=== PATIENT | male | born 1975 | race Caucasian/White ===

== ENCOUNTER → 2020-03-07 | Outpatient (CLI) | payer BC ==
--- NOTE | 2020-03-07 17:26 | CONS ---
CONSULTATION DATE OF SERVICE: 03/07/2020 This patient is a 44-year-old gentleman who has been evaluated in Sleep Center for possible obstructive sleep apnea-hypopnea syndrome. HISTORY OF PRESENT ILLNESS/SLEEP-WAKE EVALUATION: Patient's usual sleep schedule on weekdays is from 9:30 p.m. to 5 a.m. and on weekends from 11 p.m. to 10 a.m. Sometimes he has problems with falling asleep, although no TV in bedroom. He to sleep on the stomach position. He wakes up from sleep several times with one episode of nocturia. He grinds his teeth, has episodes of palpitations, heartburn, sweating. In the beginning of the night he has symptoms of restless legs. In the morning, the patient wakes up tired, has difficulties paying attention, falling asleep during the day, worries about his sleep, has problems with memory, concentration, irritability, depression and anxiety. [place] Sleepiness Scale is significantly increased at 14. He may take one nap around 3 p.m. Usually he does not feel refreshed after a nap. He does not see vivid dreams during naps. No history of hypnagogic hallucinations, sleep paralysis or cataplexy. PAST MEDICAL HISTORY: Past medical history is positive for anxiety, acid reflux, liver problems. PAST SURGICAL HISTORY: Liver biopsy in 2011. MEDICATIONS: 1. Omeprazole 20 mg once a day. 2. Citalopram 20 mg once a day. 3. Ambien 10 mg on p.r.n. basis. SOCIAL HISTORY: Negative for smoking. Alcohol consumption occasional. FAMILY HISTORY: Cancer, arthritis. REVIEW OF SYSTEMS: Multiple awakenings from sleep, significant sleepiness during the day. PHYSICAL EXAMINATION: GENERAL: A pleasant gentleman without distress. VITAL SIGNS: BP 123/73, HR 66, RR 14. Height 5 feet 9-1/2 inches. Weight 245.8. Body mass index 35.6, temperature 98.1. Oxygen saturation at room air 97%. HEENT: PERRLA, EOMI. Evaluation of oropharynx showed tongue protrudes midline. Extremely low position of soft palate. Mallampati IV. NECK: Supple. No JVD. Thyroid is not palpable. Wide neck, measuring 17-2/3 inches in circumference. LUNGS: Clear to percussion and to auscultation. Good air exchange. No wheezing or rhonchi. HEART: S1, S2 regular. No murmurs, gallops or rubs. ABDOMEN: Slightly obese. EXTREMITIES: No clubbing or cyanosis. FINANCIAL ADVISOR: Awake, alert, and oriented X3. Cranial nerves 2 to 7 intact. There is no fasciculation or atrophy. noted. No focal deficits observed. IMPRESSION: 1. Loud snoring, awakenings from sleep with nocturia, low position of soft palate, Mallampati IV, wide neck measuring 17-2/3 inches in circumference, sleepiness, [place] Sleepiness Scale increased to 14; obstructive sleep apnea-hypopnea syndrome. 2. Obesity. BMI 35.6. 3. Anxiety. 4. Acid reflux. 5. History of liver problems. PLAN: 1. Home sleep apnea test for evaluation of patient's breathing during sleep. 2. CPAP/BiPAP titration if sleep study confirms obstructive sleep apnea-hypopnea syndrome. 3. Preferable position during sleep on the side. 4. No driving if patient feels any sleepiness. 5. I will see patient for follow up visit to explain results of testing and following plan. Thank you very much for referring this patient for consultation. Sincerely, Gopal Conn MD, PhD, FAASM Diplomat of [place] [employer] [place] [employer] Organ Assembler of [facility] [place] MMODL / IJN: [id number] /
== END | disposition home or self-care (01) ==
LOC: SLEEP 15:14
PROVIDERS: ATTEND Internal Medicine
DX: G47.33 Obstructive sleep apnea (adult) (pediatric) (principal); Z99.89 Dependence on other enabling machines and devices; Z79.891 Long term (current) use of opiate analgesic
CPT/HCPCS: 99211

== ENCOUNTER → 2020-06-20 | Outpatient (CLI) | payer BC ==
--- NOTE | 2020-06-21 07:07 | SFUN ---
SLEEP CENTER FOLLOW UP NOTE DATE OF SERVICE: 06/20/2020 This 44-year-old gentleman has been followed in the sleep Center for treatment of obstructive sleep apnea-hypopnea syndrome. Recently patient had a home sleep apnea test which showed mild obstructive sleep apnea-hypopnea syndrome and because patient had symptoms of significant excessive daytime sleepiness, [place] Sleepiness Scale was increased to 14, I started him on treatment with CPAP. Today is his first visit after he started to use CPAP. Patient feels better with the CPAP. He feels less sleepy during the day and he sleeps better. I checked his CPAP unit. Range of the pressure 5-15 with average pressure is 10.9, usage is 28/30 nights for more than 4 hours with average usage of 6.9 hours per night, which is normal. Good compliance. Leak is only 2 L/minute. Apnea-hypopnea index is perfect only 0.7. [place] Sleepiness Scale decreased to 9 today comparing with his first visit. PHYSICAL EXAM: GENERAL: Patient in no distress. VITAL SIGNS: BP 117/74, HR 65, R 18, oxygen saturation at room air 97%, weight 248.4 pounds, temperature 98.3, oxygen saturation at room air 97%. HEENT: PERRLA, EOMI, evaluation of oropharynx showed tongue protrudes midline, low position of soft palate. NECK: Supple, no JVD. Thyroid is not palpable. LUNGS: Clear to percussion and to auscultation. Good air exchange. No wheezing or rhonchi. HEART: S1, S2 regular. No murmurs, gallops, or rubs. ABDOMEN: Obese, soft and nontender. Bowel sounds are present. No organomegaly appreciated. EXTREMITIES: No clubbing or cyanosis. ROPE TOW OPERATOR: Awake, alert, and oriented X3. Cranial nerves 2 to 7 intact. There is no fasciculation or atrophy. noted. No focal deficits observed. IMPRESSION: 1. Mild obstructive sleep apnea-hypopnea syndrome with symptoms of excessive daytime sleepiness. The patient demonstrated good compliance with treatment benefitting from treatment. Sleepiness decreased on treatment with CPAP. 2. History of anxiety. 3. Acid reflux. 4. Obesity. 5. History of liver problems. PLAN: PLAN 1. Patient will continue to use PAP equipment every night for the whole night. 2. Sleep hygiene with regular time in bed for at least 7-1/2 to 8 hours. 3. Precautions related to driving. No driving if feeling sleepiness. 4. I will maintain all necessary prescription for PAP supplies including mask, tube, filters. 5. Watching weight. 6. No driving if feeling sleepiness. 7. Follow-up visit in 6 months or earlier if patient has any problems. 8. If the patient will continue to feel sleepiness while on treatment with CPAP, we may consider multiple sleep latency test for objective evaluation of symptoms of excessive daytime sleepiness and if necessary, additional pharmacotherapy to prevent sleepiness. Thank you very much for allowing me to participate in management of your patient. Sincerely, Gopal Conn MD, PhD, FAASM Diplomat of [place] [employer] Special[employer] [employer] Medicine Airport Operations Coordinator of [facility] [place] MMODL / PAULYN: [id number] /
== END | disposition home or self-care (01) ==
LOC: SLEEP 16:47
PROVIDERS: ATTEND Internal Medicine
DX: G47.33 Obstructive sleep apnea (adult) (pediatric) (principal); K21.9 Gastro-esophageal reflux disease without esophagitis; E66.9 Obesity, unspecified; Z86.59 Personal history of other mental and behavioral disorders; Z87.19 Personal history of other diseases of the digestive system; Z99.89 Dependence on other enabling machines and devices

== ENCOUNTER → 2020-10-24 | Outpatient (CLI) | payer BC ==
--- NOTE | 2020-10-24 22:42 | CONS ---
CONSULTATION DATE OF SERVICE: 10/24/2020 44-year-old gentleman has been followed in Sleep Center for treatment of significant excessive daytime sleepiness. In March of 2020, home sleep apnea test showed very minimal obstructive sleep apnea- hypopnea syndrome and because patient has sleepiness and anxiety, he was started on treatment with CPAP. The patient is using his CPAP equipment every night but continued to feel sleepiness. [place] Sleepiness Scale today significantly increased to 17. I checked his CPAP unit. It is automatic regimen. Range of the pressure 5-15, usage is 27 out of 30 nights and 22 out of 30 nights for more than 4 hours. Average usage is 6 hours per night. Leak is 2 L/minute, which is perfect. Apnea-hypopnea index is only 0.5, which is absolutely perfect. MEDICATIONS: Omeprazole 20 mg once a day, escitalopram 10 mg once a day, vitamin D supplement. PHYSICAL EXAMINATION: GENERAL: Patient in no distress BP 103/64, HR 62, RR 16, height 6 and 10, weight 232, BMI 33.2, temperature 98.6, oxygen saturation at room air 99%. Oropharynx: Low position of soft palate, Mallampati 3-4. NECK: Supple, no JVD. Thyroid is not palpable. LUNGS: Clear to percussion and to auscultation. Good air exchange. No wheezing or rhonchi. HEART: S1, S2 regular. No murmurs, gallops, or rubs. ABDOMEN: Soft and nontender. Bowel sounds are present. No organomegaly appreciated. EXTREMITIES: No clubbing or cyanosis. CIGAR PACKER AND PICKER: Awake, alert, and oriented X3. Cranial nerves 2 to 7 intact. There is no fasciculation or atrophy. noted. No focal deficits observed. IMPRESSION: 1. Mild obstructive sleep apnea-hypopnea syndrome, very minimal range apnea-hypopnea index 5 by results of home sleep apnea test. The patient demonstrated good compliance with treatment, full normally position, respiration, CPAP, but the patient continued to feel sleepiness with high [place] Sleepiness Scale. 2. Very high [place] Sleepiness Scale is 17 dictate necessity to include hypersomnia in differential diagnosis while his mild obstructive sleep apnea, on control. 3. Hypertension. 4. Obesity. 5. Anxiety. 6. Acid reflux. 7. History of liver problems. PLAN: 1. CPAP titration night with following multiple sleep latency test for objective evaluation of the patient's symptoms of excessive daytime sleepiness. 2. Sleep hygiene with regular time in bed for at least 7-1/2 to 8 hours. 3. Precautions related to driving. No driving if feeling sleepiness. 4. Following plan after reviewing results of sleep study. Thank you very much for allowing me to participate in management of your patient. Sincerely, Gopal Conn MD, PhD, FAASM Diplomat of [place] Specialties [employer] Board of Internal Medicine Alcoholism Worker of [facility] [place] MMODL / PAULYN: [id number] /
== END ==
LOC: SLEEP 16:06
PROVIDERS: ATTEND Internal Medicine
DX: G47.33 Obstructive sleep apnea (adult) (pediatric) (principal); I10 Essential (primary) hypertension; E66.9 Obesity, unspecified; K21.9 Gastro-esophageal reflux disease without esophagitis; F41.9 Anxiety disorder, unspecified; Z99.89 Dependence on other enabling machines and devices; Z68.33 Body mass index [BMI] 33.0-33.9, adult; Z79.899 Other long term (current) drug therapy
CPT/HCPCS: 99202

== ENCOUNTER → 2021-01-16 | Outpatient (CLI) | payer BC ==
--- NOTE | 2021-01-16 21:20 | SFUN ---
SLEEP CENTER FOLLOW UP NOTE DATE OF SERVICE: 01/16/2021 45-year-old gentleman has been followed in Sleep Center for treatment of obstructive sleep apnea-hypopnea syndrome and excessive daytime sleepiness. Recently we did for patient a CPAP titration which showed that his respiration on CPAP was totally normal with range of the pressure up to 8 cm of water and then patient had multiple sleep latency test for objective evaluation of his symptoms of excessive daytime sleepiness. The patient had 5 naps and he fell asleep on first 4 naps. Mean sleep latency for 5 naps is 13.9 minutes and 12.35 minutes if count first 4 naps. I discussed results of sleep studies in details. During the titration, it was documented 21.9 periodic limb movements per hours, 1.2 microarousals per hour. The patient is using his CPAP equipment every night. No significant problems with the machine, but he still continues to feel sleepy during the day. [place] Sleepiness Scale today is 15. I checked his CPAP unit. Range of the pressure 5-15 with average pressure 10.3. Usage is 22 out of 30 nights and 20 out of 30 nights for more than 4 hours with average usage 6.1 hours per night. Leak is 1 L/minute which is perfect. Apnea-hypopnea index only 0.5 which is indicates normal breathing while patient is on treatment with CPAP. CURRENT MEDICATIONS: Omeprazole 20 mg once a day, escitalopram 10 mg once in the morning, some days patient taking Ambien small doses at night. PHYSICAL EXAMINATION: GENERAL: Patient in no distress. BP 108/71, HR 71, RR 15, height 5 feet 10 inches, weight 237.4, temperature 97.2, oxygen saturation at room air 97%. Body mass index 33.6. Oropharynx low position of soft palate, Mallampati 3-4. NECK: Supple, no JVD. Thyroid is not palpable. LUNGS: Clear to percussion and to auscultation. Good air exchange. No wheezing or rhonchi. HEART: S1, S2 regular. No murmurs, gallops, or rubs. ABDOMEN: Soft and nontender. Bowel sounds are present. No organomegaly appreciated. EXTREMITIES: No clubbing or cyanosis. CAPTAIN FIRE PREVENTION BUREAU: Awake, alert, and oriented X3. Cranial nerves 2 to 7 intact. There is no fasciculation or atrophy. noted. No focal deficits observed. IMPRESSION: 1. Mild obstructive sleep apnea-hypopnea syndrome. The patient demonstrated good compliance with treatment benefitting from treatment. Normal respiration on treatment with CPAP. 2. Sleepiness by high level of [place] Sleepiness Scale. The patient fell asleep on MSLT you most of the naps but mean sleep latency longer than for people with narcolepsy or idiopathic hypersomnia. 3. Periodic limb movements have been documented during the sleep study. 4. Hypertension. 5. Obesity. 6. Anxiety. 7. Acid reflux. 8. History of liver problems. PLAN: 1. The patient will try to take escitalopram at bedtime instead of morning with a goal to help him to possibly fall asleep and to make his sleepiness during the day, less if it is related to the medication. 2. Please check iron profile and ferritin level. Low level of iron may increase risk for periodic limb movements. 3. The patient will try Mirapex 0.125 mg 1-2 tablets at bedtime to prevent periodic limb movements and subsequently with a goal to make alertness during the day more than now. 4. If no improvements with above-mentioned recommendations, the patient will start treatment with modafinil in the morning with a goal to improve his alertness during the day. 5. Sleep hygiene with regular time in bed for at least 7-1/2 to 8 hours. 6. No driving if feeling sleepiness. 7. Follow-up visit in 2 months or earlier if patient has any problems. Thank you very much for allowing me to participate in management of your patient. Sincerely, Gopal Conn MD, PhD, FAASM Diplomat of [place] [employer] Specialties Sleep Medicine Board of [place] Board of Internal Medicine Customer Service Cashier of [facility] [place] MMCAMILLE / GABBY: [id number] /
== END ==
LOC: SLEEP 16:37
PROVIDERS: ATTEND Internal Medicine
DX: G47.33 Obstructive sleep apnea (adult) (pediatric) (principal); G47.61 Periodic limb movement disorder; I10 Essential (primary) hypertension; E66.9 Obesity, unspecified; K21.9 Gastro-esophageal reflux disease without esophagitis; F41.9 Anxiety disorder, unspecified; Z68.33 Body mass index [BMI] 33.0-33.9, adult; Z99.89 Dependence on other enabling machines and devices; Z79.899 Other long term (current) drug therapy

== ENCOUNTER → 2021-03-27 | Outpatient (CLI) | payer BC ==
--- NOTE | 2021-03-28 09:22 | SFUN ---
SLEEP CENTER FOLLOW UP NOTE DATE OF SERVICE: 03/27/2021 This 45-year-old gentleman has been followed in Sleep Center for treatment of obstructive sleep apnea-hypopnea syndrome and excessive daytime sleepiness. The patient is using his CPAP equipment, but not regularly. He is on treatment with modafinil in the morning for sleepiness. [place] Sleepiness Scale is 13, which is above normal. I checked his CPAP unit. It is in automatic regimen. Range of the pressure is 5 to 15, average pressure 10.5. Usage is 3/30 nights only. Leak is 0 L/minute, which is perfect. Apnea-hypopnea index only 0.2, which is absolutely normal. MEDICATIONS: 1. Omeprazole 20 mg once a day. 2. Escitalopram 20 mg once a day. 3. Modafinil: The patient takes half of the tablets, I believe, 100 mg in the morning. He still has episodes of vertigo. PHYSICAL EXAMINATION: GENERAL: Pleasant patient in no distress. VITAL SIGNS: BP 109/70, HR 65, RR 15, height 5 feet 9-1/4 inches, weight 239.8 pounds, body mass index 35.0, temperature 97.5, oxygen saturation at room air 96%. HEENT: PERRLA, EOMI, evaluation of oropharynx showed tongue protrudes midline. Low position of soft palate; Mallampati III to IV. NECK: Supple, no JVD. Thyroid is not palpable. LUNGS: Clear to percussion and to auscultation. Good air exchange. No wheezing or rhonchi. HEART: S1, S2 regular. No murmurs, gallops, or rubs. ABDOMEN: Soft and nontender. Bowel sounds are present. No organomegaly appreciated. EXTREMITIES: No clubbing or cyanosis. MEDICAL DIR: Awake, alert, and oriented X3. Cranial nerves 2 to 7 intact. There is no fasciculation or atrophy. noted. No focal deficits observed. IMPRESSION: 1. Mild obstructive sleep apnea-hypopnea syndrome. Normal respiration on CPAP. The patient is not using CPAP equipment every night. 2. Episodes of vertigo. 3. Periodic limb movements during the sleep study. 4. Hypertension. 5. Obesity. 6. Anxiety. 7. Acid reflux. 8. History of liver problems. PLAN: 1. Continue to use CPAP equipment every night for the whole night. 2. Continue to use modafinil 200 mg in the morning. 3. Sleep hygiene with regular time in bed for 8 hours. 4. No driving if feeling sleepiness. 5. Watching and losing weight. Thank you very much for allowing me to participate in the management of your patient. Sincerely, Gopal Conn MD, PhD, FAASM Diplomat of [place] [employer] Medical Specialties Sleep Medicine Board of [place] Board of Internal Medicine Shaker Flatwork of [facility] [place] MMODL / PAULYN: [id number] /
== END ==
LOC: SLEEP 16:08
PROVIDERS: ATTEND Internal Medicine
DX: G47.33 Obstructive sleep apnea (adult) (pediatric) (principal); R42 Dizziness and giddiness; G47.61 Periodic limb movement disorder; I10 Essential (primary) hypertension; E66.9 Obesity, unspecified; F41.9 Anxiety disorder, unspecified; K21.9 Gastro-esophageal reflux disease without esophagitis; Z87.19 Personal history of other diseases of the digestive system; Z79.899 Other long term (current) drug therapy; Z68.35 Body mass index [BMI] 35.0-35.9, adult

== ENCOUNTER → 2021-10-08 | Outpatient (CLI) | payer BC ==
--- NOTE | 2021-10-08 18:40 | SFUN ---
SLEEP CENTER FOLLOW UP NOTE DATE OF SERVICE: 10/08/2021 This 45-year-old gentleman has been followed in Sleep Center for treatment of obstructive sleep apnea-hypopnea syndrome. The patient continues using his CPAP equipment, but not regularly. He is getting his CPAP supplies on time. [place] Sleepiness Scale today is 11, which is slightly increased. I checked his CPAP unit. For the last month, the patient used it 8 nights, and for the last 6 months he used it 40 nights. Average usage 6.1 hours per night. Leak is 16 L/minute. Pressure in the range between 5 and 15, average 10.6. Apnea-hypopnea index 0.4, which is absolutely normal. MEDICATIONS: Omeprazole 20 mg once a day, Mirapex 0.125 mg at bedtime, modafinil 100 mg in the morning. PHYSICAL EXAMINATION: GENERAL: Pleasant patient in no distress. VITAL SIGNS: BP 117/77, HR 59, RR 12, height 5 feet 9 inches, weight 248.4, body mass index 36.9, temperature 97, oxygen saturation at room air 98%. HEENT: PERRLA, EOMI, evaluation of oropharynx showed tongue protrudes midline. Low position of soft palate; Mallampati III to IV. NECK: Supple, no JVD. Thyroid is not palpable. LUNGS: Clear to percussion and to auscultation. Good air exchange. No wheezing or rhonchi. HEART: S1, S2 regular. No murmurs, gallops, or rubs. ABDOMEN: Soft and nontender. Bowel sounds are present. No organomegaly appreciated. EXTREMITIES: No clubbing or cyanosis. PILOT CONTROL OPERATOR HELPER: Awake, alert, and oriented X3. Cranial nerves 2 to 7 intact. There is no fasciculation or atrophy. noted. No focal deficits observed. IMPRESSION: 1. Obstructive sleep apnea-hypopnea syndrome. The patient continues to use CPAP equipment, but not on a regular basis. 2. Hypertension. 3. Anxiety. 4. Acid reflux. 5. History of liver problems. 6. History of vertigo episodes in the past. 7. Periodic limb movements during sleep. 8. Obesity. Patient's weight increased by 8 pounds compared with the previous visit. PLAN: 1. Continue to use CPAP equipment every night for the whole night. I discussed with the patient the necessity to get full treatment with CPAP. 2. Watching and losing weight. 3. No driving if feeling sleepiness. 4. Sleep hygiene with regular time in bed for at least 8 hours. Thank you very much for allowing me to participate in the management of your patient. Sincerely, Gopal Conn MD, PhD, FAASM Diplomat of [place] [employer] Specialties Sleep Medicine Board of [place] Board of Internal Medicine Hot Roll Laminator of [facility] [place] MMODL / PAULYN: [id number] /
== END ==
LOC: SLEEP 15:43
PROVIDERS: ATTEND Internal Medicine
DX: G47.33 Obstructive sleep apnea (adult) (pediatric) (principal); I10 Essential (primary) hypertension; E66.9 Obesity, unspecified; Z99.89 Dependence on other enabling machines and devices; F41.9 Anxiety disorder, unspecified; K21.9 Gastro-esophageal reflux disease without esophagitis; Z87.19 Personal history of other diseases of the digestive system; Z86.69 Personal history of other diseases of the nervous system and sense organs; G47.61 Periodic limb movement disorder; Z68.36 Body mass index [BMI] 36.0-36.9, adult

== ENCOUNTER → 2022-04-22 | Outpatient (CLI) | payer BC ==
--- NOTE | 2022-04-22 16:43 | P.PN ---
Subjective DATE: 04/22/2022 FOLLOW UP VISIT. Patient with obstructive sleep apnea hypopnea syndrome return to sleep center for follow-up visit. Information from previous visit have been reviewed. Patient is using PAP equipment every night for the whole night, getting PAP supplies in time. The patient does not have significant problems with the mask, PAP unit and humidification. [place] sleepiness scale is slightly increased to 11. I checked information from PAP unit. PAP unit pressure 5-15, average 10.7 cm H2O. Usage is 97% and 80 % for more then 4 hours, average 6.3 hours per night. Leak is 0.7 l/m, which is perfect. Apnea Hypopnea Index is 0.5, which is also perfect. MEDICATIONS:1. Omeprazole 20 mg once a day 2. Modafinil 200 mg once a day 3. Mirapex 0.125 mg once a day 4. vitamin D supplement During physical exam: GENERAL: A pleasant patient without any distress. VITAL SIGNS: BP 112/75, HR 65, RR 14 , weight 245.4, temperature 96.6, oxygen saturation at room air 97 % . HEENT: PERRLA, EOMI.low position of soft palate, Mallapati 3-4 . NECK: Supple. No JVD. LUNGS: Clear to percussion and to auscultation. Good air exchange. No wheezing or rhonchi. HEART: S1, S2 regular. ABDOMEN: Soft and nontender.[] EXTREMITIES: No clubbing or cyanosis. TEXTILE SCIENCE TECHNICIAN: Awake, alert, and oriented x3. No focal deficit. Impressions: 1. Obstructive sleep apnea-hypopnea syndrome. Patient demonstrated great compliance with treatment, benefiting from treatment. 2. History of anxiety. 3. Hypertension. 4. Acid reflux. 5. Periodic limb movements during sleep, on treatment with Mirapex. 6. History of liver problems. 7. History of vertigo episodes in the past. 8. Obesity. Plan: 1. Continue using PAP equipment every night for the whole night. 2. To change air filter at least 1-2 times per month. 3. PAP unit should stay lower then position of the head. 4. Advised patient to remove all remaining water from humidifier canister daily and make it dry after each usage. Refill canister with fresh distilled water before each usage. 5. Sleep hygiene with regular time in bed for at least 8 hours. 6. Precautions related to driving. No driving if feel any sleepiness. 7. I will maintain prescription for PAP supplies including mask, tube, filters. 8. Follow up visit in 6 months or earlier if patient has any problems. 9. Watching and losing weight. Thank you very much for allowing me to participate in the management of your patient. Gopal Conn MD, PhD, FAASM. Diplomat of [place] [employer] Medicine, Sleep Medicine Board by [place] [employer] Medicine Calculating Machine Mechanic of [facility] [place]
== END ==
LOC: SLEEP 15:56
PROVIDERS: ATTEND Internal Medicine
DX: G47.33 Obstructive sleep apnea (adult) (pediatric) (principal); I10 Essential (primary) hypertension; K21.9 Gastro-esophageal reflux disease without esophagitis; G47.61 Periodic limb movement disorder; Z86.59 Personal history of other mental and behavioral disorders; Z99.89 Dependence on other enabling machines and devices; E66.9 Obesity, unspecified; Z87.19 Personal history of other diseases of the digestive system; Z86.69 Personal history of other diseases of the nervous system and sense organs
CPT/HCPCS: 99212

== ENCOUNTER → 2022-11-18 | Outpatient (CLI) | payer BC ==
--- NOTE | 2022-11-18 17:20 | P.PN ---
Subjective DATE: 11/18/2022 FOLLOW UP VISIT. Patient with obstructive sleep apnea hypopnea syndrome return to sleep center for follow-up visit. Information from previous visit have been reviewed. Patient is using PAP equipment every night for the whole night, getting PAP supplies in time. The patient does not have significant problems with the mask, PAP unit and humidification. [place] sleepiness scale is increased to 15. I checked information from PAP unit. PAP unit pressure 5-15, average 11.1 cm H2O. Usage is 98 % for more then 4 hours, average 7.1 hours per night. Leak is 2 l/m, which is in acceptable range. Apnea Hypopnea Index is 0.6, which is normal. MEDICATIONS:1. Omeprazole 20 mg once a day 2. Modafinil 200 mg by mouth every morning 3. Mirapex 0.125 mg at bedtime 4. Ambien 10 mg as needed During physical exam: GENERAL: A pleasant patient without any distress. VITAL SIGNS: BP 112/72, HR 69, RR 12 , weight 247.8, temperature 97.6, oxygen saturation at room air 95 % . HEENT: PERRLA, EOMI.low position of soft palate, Mallapati 3 . NECK: Supple. No JVD. LUNGS: Clear to percussion and to auscultation. Good air exchange. No wheezing or rhonchi. HEART: S1, S2 regular. ABDOMEN: Soft and nontender.[] EXTREMITIES: No clubbing or cyanosis. COLLET GLUER: Awake, alert, and oriented x3. No focal deficit. Impressions: 1. Obstructive sleep apnea-hypopnea syndrome. Patient demonstrated great compliance with treatment, benefiting from treatment. 2. Sleepiness, improved on modafinil. Multiple sleep latency test confirmed sleepiness but in the range no sufficient for diagnosis of narcolepsy or idiopathic hypersomnia, possibly secondary to sleep apnea.. 3. Obesity BMI 36.4. 4. Hypertension. 5. Acid reflux. 6. Periodic limb movements, on treatment with Mirapex. 7. History of liver problems. 8. History of vertigo episodes in the past. Plan: 1. Continue using PAP equipment every night for the whole night. 2. To change air filter at least 1-2 times per month. 3. PAP unit should stay lower then position of the head. 4. Advised patient to remove all remaining water from humidifier canister daily and make it dry after each usage. Refill canister with fresh distilled water before each usage. 5. Sleep hygiene with regular time in bed for at least 8 hours. 6. Precautions related to driving. No driving if feel any sleepiness. 7. I will maintain prescription for PAP supplies including mask, tube, filters. 8. Watching and losing weight. 9. Follow up visit in 6 months or earlier if patient has any problems. Thank you very much for allowing me to participate in the management of your patient. Gopal Conn MD, PhD, FAASM. Diplomat of [employer], Sleep Medicine Board by [employer] Bearing Ring Assembler of [facility] [place]
== END ==
LOC: 3 N SLEEP 15:47
PROVIDERS: ATTEND Internal Medicine
DX: G47.33 Obstructive sleep apnea (adult) (pediatric) (principal); E66.9 Obesity, unspecified; G47.61 Periodic limb movement disorder; I10 Essential (primary) hypertension; K21.9 Gastro-esophageal reflux disease without esophagitis; Z68.36 Body mass index [BMI] 36.0-36.9, adult; Z99.89 Dependence on other enabling machines and devices
CPT/HCPCS: 99212

== ENCOUNTER → 2023-05-19 | Outpatient (CLI) | payer BC ==
--- NOTE | 2023-05-19 17:00 | P.PN ---
Subjective DATE: 05/19/2023 FOLLOW UP VISIT. Patient with obstructive sleep apnea hypopnea syndrome return to sleep center for follow-up visit. Information from previous visit have been reviewed. Patient is using PAP equipment every night for the whole night, getting PAP supplies in time. The patient does not have significant problems with the mask, PAP unit and humidification. [place] sleepiness scale is increased to 14. I checked information from PAP unit. PAP unit pressure 4-9, average 8.9 cm H2O. Usage is 100 % for more then 4 hours, average 6.7 hours per night. Leak is 4 l/m, which is in acceptable range. Apnea Hypopnea Index is 0.5, which is normal. MEDICATIONS:1. Omeprazole 20 mg once a day 2. Escitalopram 20 mg once a day 3. Modafinil 200 mg once a day During physical exam: GENERAL: A pleasant patient without any distress. VITAL SIGNS: BP 118/76, HR 62, RR 16, weight 252.0, temperature 98.3, oxygen saturation at room air 97 % . HEENT: PERRLA, EOMI.low position of soft palate, Mallapati 3 . NECK: Supple. No JVD. LUNGS: Clear to percussion and to auscultation. Good air exchange. No wheezing or rhonchi. HEART: S1, S2 regular. ABDOMEN: Soft and nontender.[] EXTREMITIES: No clubbing or cyanosis. RECRUITMENT OFFICER: Awake, alert, and oriented x3. No focal deficit. Impressions: 1. Obstructive sleep apnea-hypopnea syndrome. Patient demonstrated great compliance with treatment, benefiting from treatment. 2. Sleepiness, confirmed by multiple sleep latency test but not in the range for diagnosis of narcolepsy or idiopathic hypersomnia, possibly secondary to sleep apnea, improved on treatment with modafinil.. 3. Hypertension. 4. Acid reflux. 5. Obesity, patient increased weight and 5 pounds comparing with previous visit. 6. History of periodic limb movements. 7. History of liver problems. 8. History of vertigo episodes in the past. Plan: 1. Continue using PAP equipment every night for the whole night. 2. To change air filter at least 1-2 times per month. 3. PAP unit should stay lower then position of the head. 4. Advised patient to remove all remaining water from humidifier canister daily and make it dry after each usage. Refill canister with fresh distilled water before each usage. 5. Sleep hygiene with regular time in bed for at least 8 hours. 6. Precautions related to driving. No driving if feel any sleepiness. 7. I will maintain prescription for PAP supplies including mask, tube, filters. 8. Follow up visit in 6 months or earlier if patient has any problems. 9. Watching and losing weight. 10. Patient will continue treatment with modafinil 200 mg in the morning to prevent excessive daytime sleepiness. Thank you very much for allowing me to participate in the management of your patient. Gopal Conn MD, PhD, FAASM. Diplomat of [place] [employer], Sleep Medicine Board by [place] Campus Security Director of [facility] [place]
== END ==
LOC: 3 N SLEEP 16:06
PROVIDERS: ATTEND Internal Medicine
DX: G47.33 Obstructive sleep apnea (adult) (pediatric) (principal); E66.9 Obesity, unspecified; I10 Essential (primary) hypertension; K21.9 Gastro-esophageal reflux disease without esophagitis; G47.61 Periodic limb movement disorder; Z79.899 Other long term (current) drug therapy; Z99.89 Dependence on other enabling machines and devices; Z87.19 Personal history of other diseases of the digestive system; Z86.69 Personal history of other diseases of the nervous system and sense organs
CPT/HCPCS: 99212

== ENCOUNTER → 2023-12-22 | Outpatient (CLI) | payer BC | LOC: 3 N SLEEP 16:03 | PROVIDERS: ATTEND Internal Medicine | CPT/HCPCS: 99212 ==

== ENCOUNTER → 2024-06-07 | Outpatient (CLI) | payer BC ==
[2024-06-07 16:54] VITALS: BP 117/76; PULSE 70; RESP 16; TEMP 98.5
--- NOTE | 2024-06-07 18:00 | P.PROGSL ---
Subjective DATE: 06/07/2024 FOLLOW UP VISIT. Patient with obstructive sleep apnea hypopnea syndrome return to sleep center for follow-up visit. Information from previous visit have been reviewed. Patient is on treatment with modafinil 200 mg in the morning to prevent sleepiness and Mirapex 0.125 mg 1 to 2 tablets at bedtime to prevent periodic limb movements. Patient is using PAP equipment every night for the whole night, getting PAP supplies in time. The patient does not have significant problems with the mask, PAP unit and humidification. [place] sleepiness scale is 10, which is borderline. I checked information from PAP unit. PAP unit pressure 7-12, average 10.5 cm H2O. Usage is 100% for more then 4 hours, average 6.7 hours per night. Leak is 1 l/m, which is in great range. Apnea Hypopnea Index is 0.5, which is perfect. MEDICATIONS have been reviewed, please see below. During physical exam: GENERAL: A pleasant patient without any distress. VITAL SIGNS: Please see below, weight is 256.8 lbs. HEENT: PERRLA, EOMI.low position of soft palate, Mallapati 3. NECK: Supple. No JVD. LUNGS: Clear to percussion and to auscultation. Good air exchange. No wheezing or rhonchi. HEART: S1, S2 regular. ABDOMEN: Soft and nontender.[] EXTREMITIES: No clubbing or cyanosis. GUN STOCK CHECKER: Awake, alert, and oriented x3. No focal deficit. Impressions: 1. Obstructive sleep apnea-hypopnea syndrome. Patient demonstrated great compliance with treatment, benefiting from treatment. 2. Sleepiness, confirmed by multiple sleep latency test but not in the range for diagnosis of narcolepsy or idiopathic hypersomnia, possibly secondary to obstructive sleep apnea. 3. Periodic limb movements, mostly on control with Mirapex. 4. Hypertension. 5. Acid reflux. 6. Obesity, BMI 37.5, patient increased weight on 4 pounds comparing with previous visit. 7. History of vertigo episodes in the past. 8. History of liver problems. Plan: 1. Continue using PAP equipment every night for the whole night. 2. Sleep hygiene with regular time in bed for at least 7.5-8 hours 3. PAP unit should stay lower then position of the head. 4. Advised patient to remove all remaining water from humidifier canister daily and make it dry after each usage. Refill canister with fresh distilled water before each usage. 5. Watching weight. 6. Precautions related to driving. No driving if feel any sleepiness. 7. I will maintain prescription for PAP supplies including mask, tube, filters. 8. Follow up visit in 6 months or earlier if patient has any problems. 9. I will maintain prescriptions for Mirapex 0.125 mg 1 to 2 tablets at bedtime and modafinil 200 mg 1 tablet in the morning. Thank you very much for allowing me to participate in the management of your patient. Gopal Conn MD, PhD, FAASM. Diplomat of [place] [employer], Sleep Medicine Board by [place] Records And Information Manager of [facility] [place] Objective - Vital Signs Vital Signs: Vital Signs Temp 98.5 F 06/07/24 16:54 Pulse 70 06/07/24 16:54 Resp 16 06/07/24 16:54 BP 117/76 06/07/24 16:54 Pulse Ox 97 06/07/24 16:54 FiO2 Intake & Output 06/06/24 06/07/24 06/07/24 18:59 06:59 18:59 Weight 116.346 kg Home Medications: Home Medications Medication Instructions Recorded Confirmed Type Escitalopram [Lexapro] 20 mg PO DAILY 06/07/24 06/07/24 History Omeprazole 20 mg PO DAILY 06/07/24 06/07/24 History Zolpidem [Ambien] 10 mg PO HS PRN 06/07/24 06/07/24 History modafiniL [Provigil] 200 mg PO DAILY 06/07/24 06/07/24 History
== END ==
LOC: 3 N SLEEP 16:20
PROVIDERS: ATTEND Internal Medicine
DX: G47.33 Obstructive sleep apnea (adult) (pediatric) (principal); I10 Essential (primary) hypertension; K21.9 Gastro-esophageal reflux disease without esophagitis; E66.01 Morbid (severe) obesity due to excess calories; Z68.37 Body mass index [BMI] 37.0-37.9, adult; Z86.69 Personal history of other diseases of the nervous system and sense organs; Z87.19 Personal history of other diseases of the digestive system
CPT/HCPCS: 99212